=== PATIENT | female | born 1945 | race Caucasian/White ===

== ENCOUNTER 2024-04-19 22:48 | Emergency (ER) | payer MEDICARE, SELFPAY ==
[2024-04-19 22:54] VITALS: BP 200/98
[2024-04-19 23:04] VITALS: BMI 22.9
--- NOTE | 2024-04-19 23:14 | ED.GENMED ---
History of Present Illness
General
Chief Complaint: Abdominal Pain
Source: patient
Time Seen by Provider: 04/19/24 23:06
History of Present Illness
History of Present Illness:
This patient is a 78-year-old female was feeling perfectly well until about 3 hours ago when she developed the somewhat gradual onset of right lower quadrant pain that she also notes in her right lower back. The pain is constant but wax and wanes
in intensity and she feels like she 'cannot get comfortable'. She has nausea but denies vomiting. She did have 1 episode of loose stools without blood. She denies fever, chest pain, dyspnea, upper abdominal pain, diaphoresis, or other complaints
Past History
Past History
ED Past Medical History: Asthma, COPD and HTN
ED Past Surgical History: Cholecystectomy and Gynecological (Hysteretomy)
Social History
Tobacco: Former smoker
Alcohol: None
Drug: None
Personal:
Living: alone
Phy Exam
Physical Exam
Physical Exam:
GENERAL: Alert , in no apparent distress, pleasant, appears slightly uncomfortable
EYE: pupils equal and reactive
NECK: Supple, no significant adenopathy.
ENT: o/p clr, mmm.
CARDIAC: Regular rate and rhythm .
LUNGS: Clear breath sounds bilaterally, no acute respiratory distress, no wheezes/rales/rhonchi
ABDOMEN: Soft, very mild right mid quadrant tenderness, no r/g, no cvat
NEUROLOGICAL: Alert and oriented, no focal neuro deficits
SKIN: Warm and dry, skin intact.
MUSCULOSKELETAL: No edema, well perfused.
PSYCH: Normal and appropriate interaction.
Course
Orders/Labs/Results
Orders:
Orders
04/19/24 23:13
Complete Blood Count/With Diff Urgent
Comprehensive Metabolic Panel Urgent
Urinalysis Reflex To Culture Urgent
Date Specimen was Collected: 04/19/24
Time Specimen was Collected: 23:07
Urine Microscopic Reflex Cult Urgent
Ketorolac [Toradol] 15 mg IV NOW STA
04/19/24 23:14
CT Abd/pel Without Iv Or Oral Urgent
Comment:
Reason For Exam: rlq/back pain
04/19/24 23:18
Ondansetron Injectable [Zofran] 4 mg .ROUTE .STK-MED ONE
04/19/24 23:19
Ondansetron Injectable [Zofran] 4 mg IV NOW STA
04/19/24 23:54
Morphine Sulfate 4 mg .ROUTE .STK-MED ONE
04/19/24 23:55
Morphine Sulfate 4 mg IV NOW STA
04/20/24 00:02
US Pelvis W Transvag Combined Urgent
Reason For Exam: R sided pain
Abnormal Lab Results
04/19/24
23:13
WBC 11.4 H 10^3/uL
(4.8-10.8)
Plt Count 416 H 10^3/uL
(130-400)
Absolute Neuts (auto) 8.5 H 10^3/uL
(1.4-6.5)
Absolute Monos (auto) 1.2 H 10^3/uL
(0.1-0.6)
Lymphocytes % 12.8 L %
(20.5-51.1)
Monocytes % 10.9 H %
(1.7-9.3)
Urine Ketones 1+ A
(Negative)
Ur Occult Blood Reflex Trace A
(Negative)
Urine RBC 7-10 A /HPF
(0-2)
04/19/24 23:13
04/19/24 23:13
Vital Signs
Initial and Last Documented VS:
Initial Vital Signs
Temp Pulse Resp BP Pulse Ox
97.7 F 98 22 200/98 96
04/19/24 22:54 04/19/24 22:54 04/19/24 22:54 04/19/24 22:54 04/19/24 22:54
Last Documented Vital Signs
Temp Pulse Resp BP Pulse Ox
97.7 F 98 22 162/76 95
04/19/24 22:54 04/19/24 22:54 04/19/24 22:54 04/20/24 00:01 04/20/24 00:15
*Critical Care Note
Total Time (30-74mins, 75-104mins- exclusive of procedures): Not Applicable
Update Note
Update Note:
Patient presents to the Emergency Department with ____abdominal pain
Number and Complexity of Problems Addressed at the Encounter
� Chronic conditions affecting care:
� Acute Exacerbation and/or Progression of Chronic Illness:
� Differential Diagnosis includes: But not limited to appendicitis, kidney stone, colitis, etc. etc.
Amount and/or Complexity of Data to be Reviewed and Analyzed
� I performed an independent evaluation of and my interpretation is:
EKG:
CT: 1201 AM vision report verbal: 20 cm cyst arising from pelvis, t hought to be ovarian in origin, has septations. Unlikely to torse given size.
Xrays:
Laboratory Studies:mild leukocytosis
Other:
� Review of other/old records reveals:
� Clinical information was obtained by an independent historian:
� Prescriptions/Medications Considered but not given:
� Further testing considered but not performed:
Risk of Complications and/or Morbidity or Mortality of Patient Management
� Social determinants of health affecting care:
� Discussion with other providers (PCP, Hospitalists, Consultants, etc):
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 Pt's pain better with morphine.
1219 AM case dw US tech, she does not need to fill bladder before going over, recommend tV, d/w pt this approach,she is goign to US area now.
Of note, we did bladder scan before CT report back, read as >1100 ml, Ansari placed however less than 200 Ml...suspect scanner misread cyst as bladder.
101 AM vision verbal report...US shows flow along periphery of mass, unable to see individual ovaries. Torsion thought to be very unlikely.
134 am reassessment...pt remains pain free (has been pain free since one and only dose of morphine). Repeat tt sent to Dr Chaudhry.
Case d/w Dr Chaudhry again, updated regarding pain status, US , review of CT, etc. Collectively, it is thought to be EXTREMELY unlikley that this represents a torsion...(shared by manuelito also)...mass so large that essentially without room to actually
torse. Pain fully relieved. Dr Chaudhry recommends d/c with gynonc promptly. Long long d/w pt and son...aware that this may be malignancy...f/u essential. Short course of pain meds written on script (Doc RX not operational) with precautions.
ED Attending Note
-
Portions of this chart may have been created with voice recognition software.� Occasional wrong word or��sound alike� substitutions may have occurred due to the inherent limitations of voice recognition software.
Discharge Plan
Departure
Patient Disposition: Home (Routine Discharge)
Date of Disposition: 04/20/24
Time of Disposition: 01:02
Patient with high blood pressure during this ER visit?: Yes
Condition: Good
Discharge Problem:
Abdominal pain, Cyst, ovarian
Instructions: Ovarian Cyst (DC), Abdominal Pain, BLOOD PRESSURE
Prescriptions:
New
oxycodone-acetaminophen [Percocet] 5-325 mg tablet
1 tab PO Q4HPRN PRN (Reason: pain) Qty: 13 0RF
No Action
lisinopril 10 MG tablet
10 mg PO DAILY
albuterol sulfate 1 PUFF HFA aerosol inhaler
2 puff inhalation R Q4HPRN PRN (Reason: prn)
latanoprost (PF) 7.5 ML drops
1 drp OP DAILY
Trelegy Ellipta 200-62.5-25 mcg Blister With Device
1 inh INHALATION DAILY
Referrals:
PRIVATE,PHYSICIAN [Family Provider] -
Edil Carrera MD [Active] - Follow up in 2-3 days
Activity Restrictions/Additional Instructions:
IF YOU DEVELOP FEVER, CHILLS, VOMITING, RECURRENT/NEW/PERSISTENT PAIN, BLEEDING, OR OTHER WORRISOME SIGNS, GO TO THE ER IMMEDIATELY! IT IS VERY IMPORTANT THAT YOU SEE THE GYNONCOLOGY DOCTOR SOON POSSIBLE (THIS WEEK). YOU NEED FURTHER
EVALUATION OF WHAT IS THOUGHT TO BE AN OVARIAN CYST.
Interventions
Interventions:
*Risk Screen - Suicide Last Done: 04/19/24 22:54
*General Assessment Last Done: 04/19/24 23:04
*Neglect/Abuse Screening Last Done: 04/19/24 22:54
ED- Fall Risk Assessment Last Done: 04/19/24 23:04
*ED COVID-19 Vaccine History Last Done: 04/19/24 23:04
ME-Tifcnh-Zcnutaqmxb Assessment Last Done: 04/19/24 23:04
Discharge Date and Time
Print Language: DANISH
[2024-04-19] MEDS: ZOFRAN 4 MG IV (23:20)
[2024-04-19] MEDS: TORADOL 15 MG IV (23:20)
[2024-04-19 23:22] LABS: % Basophils 0.6 % (0-2); % Immature Granulocytes 0.4 % (0-0.5); % Lymphocytes 12.8 % (20.5-51.1); % Monocytes 10.9 % (1.7-9.3); % Neutrophils 74.3 % (42.2-75.2); Absolute Basophils 0.1 10^3/uL (0-0.2); Absolute Eosinophils 0.1 10^3/uL (0-0.7); Absolute Lymphocytes 1.5 10^3/uL (1.2-3.4); Absolute Monocytes 1.2 10^3/uL (0.1-0.6); Absolute Neutrophils 8.5 10^3/uL (1.4-6.5); Hematocrit 41.8 % (37.0-47.0); Hemoglobin 14.2 g/dL (12.0-16.0); Mean Corpuscular Hgb 28.5 pg (27.0-31.0); Mean Corpuscular Volume 83.9 fL (81.0-99.0); Mean Platelet Volume 8.7 fL (7.4-10.4); Nucleated Red Blood Cells % 0 %; Platelet Count 416 10^3/uL (130-400); Red Blood Cell Count 4.98 10^6/uL (4.20-5.40); Red Cell Dist. Width 13.8 % (11.5-14.5); White Blood Cell Count 11.4 10^3/uL (4.8-10.8)
[2024-04-19 23:23] LABS: Urine Albumin Negative (Neg - Trace); Urine Bilirubin Negative (Negative); Urine Character Slightly Cloudy (Clear); Urine Color Yellow; Urine Glucose Negative (Negative); Urine Ketone 1+ (Negative); Urine Leukocyte Negative (Negative); Urine Nitrite Negative (Negative); Urine Occult Blood Trace (Negative); Urine Urobilinogen Negative (Neg - 1+)
[2024-04-19 23:34] LABS: Urine Squamous Cell 16-20 /LPF (Few)
[2024-04-19 23:35] LABS: ALT (SGPT) 20 U/L (0-35); AST (SGOT) 28 U/L (14-36); Albumin 4.2 g/dl (3.5-5.0); Alkaline Phosphatase 119 U/L (38-126); Blood Urea Nitrogen 17 mg/dl (7-17); Calcium 9.7 mg/dl (8.4-10.2); Carbon Dioxide 25 mmol/L (22-30); Chloride 103 mmol/L (98-107); Estimated Creatinine Clearance 40 ml/min; Glucose 95 mg/dl (70-99); Potassium 4.4 mmol/L (3.5-5.1); Sodium 139 mmol/L (135-145); Total Bilirubin 0.8 mg/dl (0.2-1.3); Total Protein 6.8 g/dl (6.3-8.2); eGFR > 60.00
[2024-04-19 23:36] LABS: Urine White Cell None Seen /HPF (0-5)
[2024-04-19] MEDS: MORPHINE SULFATE 4 MG IV (23:55)
--- NOTE | 2024-04-20 | EDRN ---
patient was bladder scanned for >1000 when 17F ayers placed only 100mls clear yellow urine drained-- Dr. Ayers made aware and is at bedside
[2024-04-20 00:01] VITALS: BP 162/76
[2024-04-20 01:00] VITALS: BP 167/80
== END 2024-04-20 01:48 | disposition home or self-care (01) ==
LOC: EMR 22:48
PROVIDERS: Student in an Organized Health Care Education/Training Program; EMERGENCY PHYSICIAN Emergency Medicine
DX: R10.31 Right lower quadrant pain (principal); R11.0 Nausea; M54.50 Low back pain, unspecified; N83.209 Unspecified ovarian cyst, unspecified side; I10 Essential (primary) hypertension; J44.89 Other specified chronic obstructive pulmonary disease; Z87.891 Personal history of nicotine dependence; Z90.49 Acquired absence of other specified parts of digestive tract; Z88.1 Allergy status to other antibiotic agents; Z88.0 Allergy status to penicillin
CPT/HCPCS: 99285; 96374; 96375 ×2; 51798; 51702; 74176; 76830; 76856; 80053; 81003; 81015; 85025

== ENCOUNTER 2024-04-20 13:25 | Inpatient (IN) | payer MEDICARE, SELFPAY ==
[2024-04-20] VITALS (15 sets, daily range): BP systolic 117–198; BP diastolic 63–94; BMI 23.0; BMI 22.1
--- NOTE | 2024-04-20 10:48 | ED.GENMED ---
History of Present Illness
General
Chief Complaint: Abdominal Pain
Time Seen by Provider: 04/20/24 10:48
History of Present Illness
History of Present Illness:
TIME OF INITIAL ENCOUNTER: 10:50 AM
HPI: The patient presents with right sided pain. She was seen in the emergency department overnight and was found to have a large ovarian mass. However pain was improved and in discussion with gynecology, she was discharged to home. This morning,
her pharmacy was not open and therefore did not start the Percocet. The pain was rather severe and debilitating so she came in here for reevaluation.
EXAM:
GENERAL: Appears to be in mild to moderate distress
HEENT: Moist oral mucosa
CARDIOVASCULAR: No murmurs, normal heart rate, regular rhythm, No chest wall tenderness
PULMONARY: No respiratory distress, breath sounds are clear and equal
ABDOMEN: Prominent diffuse abdominal tenderness with fullness noted in the lower abdomen
NEUROLOGIC: Good strength all extremities, no coordination deficits
PSYCHIATRIC: Appropriate mental status, normal insight and judgement
EXTREMITIES: Nontender, no edema, moves all extremities equally
SKIN: No rash, no lesions
NUMBER AND COMPLEXITY OF PROBLEMS ADDRESSED AT THE ENCOUNTER
� Chronic conditions affecting care: Former smoker, high blood pressure, has had cholecystectomy
� Acute Exacerbation and/or Progression of Chronic Illness: This is an acute problem
� Differential Diagnosis includes:
AMOUNT AND/OR COMPLEXITY OF DATA TO BE REVIEWED AND ANALYZED
� I performed an independent evaluation of and my interpretation is:
EKG: Sinus 79, normal axis, no acute ST abnormality
CT:
X-rays:
Laboratory Studies: White count 11.9, hemoglobin 13.6, chemistries unremarkable, CEA and CA125 have been added by gynecology which are currently pending
Other:
� Review of other/old records: I reviewed the notes from yesterday. The patient had acute right lower quadrant pain that started yesterday. She was given Toradol in the emergency department and then was given a dose of
morphine. It appears that Dr. Ansari did discuss with Dr. Childs. CT of the abdomen pelvis showed a large 20 cm cystic midline mass 'etiology likely ovarian/neoplasm to be excluded'. Ultrasound showed a 21.5 cm mass with arterial and Doppler flow
noted.
� Clinical information was obtained by an independent historian: I spoke to family at bedside
� Prescriptions/Medications Considered but not given:
� Further testing considered but not performed:
RISK OF COMPLICATIONS AND/OR MORBIDITY OR MORTALITY OF PATIENT MANAGEMENT
� Social determinants of health affecting care: Lives at home
� Discussion with other providers: Discussed case with Dr. Childs
� Escalation of care including admission/observation vs risk of discharge considered: I discussed the case with Dr. Childs who discussed the case with Dr. Toussaint plan is for surgery today due to concern for torsion,
ANY OTHER UPDATES:
12 PM: I reassessed the patient and despite narcotic analgesia she still appears somewhat uncomfortable. Since she is likely going to the OR later, NPO.
Past History
Past History
ED Past Medical History: Asthma, COPD and HTN
ED Past Surgical History: Cholecystectomy and Gynecological (Hysteretomy)
Social History
Tobacco: Former smoker
Alcohol: None
Drug: None
Personal:
Living: alone
Phy Exam
Physical Exam
Physical Exam:
See HPI
Course
Orders/Labs/Results
Orders:
Orders
04/20/24 Lunch
NPO
Allow oral meds: No
Allow clear liquids: No
04/20/24 10:55
Ketorolac [Toradol] 15 mg IV NOW STA
Morphine Sulfate 4 mg IV NOW STA
04/20/24 11:07
Basic Metabolic Panel Urgent
Complete Blood Count/With Diff Urgent
04/20/24 11:11
Ondansetron Injectable [Zofran] 4 mg IV NOW STA
04/20/24 11:51
Admit Patient As Directed
Co-Sign Provider:
Level of Care: Inpatient admission
Assign to:: Medical/Surgical
Physician / Group: [facility]
Diagnosis: Pelvic Mass
Reason for Hospitalization: Pelvic Mass, abdominal pain, suspect torsion
Expected length of stay greater than two midnights?: No
ELOS- Estimated Length of Stay in days: 2
I certify the patient meets the requirements for IP care: Yes
PRN Pain Medication Management As Directed
May give lesser potent ordered pain med per pt: Yes
preference::
Protocol:: Medication orders for pain may be administered in a
manner that supports deferring to patient preference
when the pt is:
- Requesting an ordered lesser potent pain medication.
Least to most potent pain medications are defined
as: acetaminophen < NSAID < tramadol < opioids
(morphine, oxycodone, hydromorphone).
- Requesting a lesser dose of the same medication IF
ORDERED.
- Requesting a less intrusive route of administration
if both routes are prescribed by the provider (PO <
IV).
04/20/24 11:56
Sequential Compression Device [Pneumatic Compression Sleeves] As Directed
Type: Knee high
04/20/24 11:57
DX Deep Vein Thrombosis Video Routine
04/20/24 11:58
EKG [Electrocardiogram (*1)] Urgent
Reason for Study: Abdominal Pain
Other Reason for Exam: Pre-op
04/20/24 12:02
Electrocardiogram (*1) Urgent
Reason for Study: PreOp
EKG- Treatment ONCE
04/20/24 12:10
CA 125 Urgent
CEA Urgent
04/20/24 14:00
Clindamycin 900 mg/50 ml [Cleocin] 900 mg in 50 ml IV PRE PROCEDURE
Gentamicin Sulfate [Gentamicin] 280 mg 0.9% Sodium Chloride [Nss] 50 ml IV ONCE
Abnormal Lab Results
04/20/24
11:07
WBC 11.9 H 10^3/uL
(4.8-10.8)
MCHC 32.9 L g/dL
(33.0-37.0)
Absolute Neuts (auto) 9.6 H 10^3/uL
(1.4-6.5)
Absolute Lymphs (auto) 1.0 L 10^3/uL
(1.2-3.4)
Absolute Monos (auto) 1.1 H 10^3/uL
(0.1-0.6)
Neutrophils % 80.9 H %
(42.2-75.2)
Lymphocytes % 8.2 L %
(20.5-51.1)
Monocytes % 9.6 H %
(1.7-9.3)
BUN 20 H mg/dl
(7-17)
04/20/24 11:07
04/20/24 11:07
Vital Signs
Initial and Last Documented VS:
Initial Vital Signs
Temp Pulse Resp BP Pulse Ox
98.2 F 88 18 198/78 96
04/20/24 09:39 04/20/24 09:39 04/20/24 09:39 04/20/24 09:39 04/20/24 09:39
Last Documented Vital Signs
Temp Pulse Resp BP Pulse Ox
98.2 F 84 20 153/77 94
04/20/24 09:39 04/20/24 11:15 04/20/24 11:15 04/20/24 12:00 04/20/24 12:45
*Critical Care Note
Total Time (30-74mins, 75-104mins- exclusive of procedures): Not Applicable
ED Attending Note
-
Portions of this chart may have been created with voice recognition software.� Occasional wrong word or��sound alike� substitutions may have occurred due to the inherent limitations of voice recognition software.
Discharge Plan
Departure
Patient Disposition: Admit
Date of Disposition: 04/20/24
Time of Disposition: 12:03
Presentation/result/management discussed w/ accepting MD/DO: dr aguayo
Discharge Problem:
Pelvic mass
Prescriptions:
No Action
lisinopril 10 MG tablet
10 mg PO DAILY
albuterol sulfate 1 PUFF HFA aerosol inhaler
2 puff inhalation R Q4HPRN PRN (Reason: sob)
Trelegy Ellipta 200-62.5-25 mcg Blister With Device
1 inh INHALATION R DAILY
latanoprost 0.005 % Drops
1 drp BOTH EYES HS
esomeprazole magnesium [Nexium] 20 mg Capsule,Delayed Release(Dr/Ec)
20 mg PO DAILY
Centrum MultiGummies 80 mcg Tablet,Chewable
1 tab PO DAILY
Referrals:
Preeti Poole DO [Family Provider] -
Interventions
Interventions:
*Risk Screen - Suicide Last Done: 04/20/24 09:39
*General Assessment Last Done: 04/20/24 09:39
*Neglect/Abuse Screening Last Done: 04/20/24 09:39
*ED COVID-19 Vaccine History Last Done: 04/20/24 11:04
HP-Qvqpgl-Frmetrczmm Assessment Last Done: 04/20/24 11:04
Discharge Date and Time
Print Language: LITHUANIAN
[2024-04-20] MEDS: MORPHINE SULFATE 4 MG IV (11:15)
[2024-04-20] MEDS: ZOFRAN 4 MG IV ×2 (11:15→22:11)
[2024-04-20] MEDS: TORADOL 15 MG IV ×2 (11:15→18:07)
[2024-04-20 11:18] LABS: % Basophils 0.6 % (0-2); % Eosinophils 0.4 % (0-6); % Immature Granulocytes 0.3 % (0-0.5); % Lymphocytes 8.2 % (20.5-51.1); % Monocytes 9.6 % (1.7-9.3); % Neutrophils 80.9 % (42.2-75.2); Absolute Basophils 0.1 10^3/uL (0-0.2); Absolute Eosinophils 0.1 10^3/uL (0-0.7); Absolute Monocytes 1.1 10^3/uL (0.1-0.6); Absolute Neutrophils 9.6 10^3/uL (1.4-6.5); Hematocrit 41.4 % (37.0-47.0); Hemoglobin 13.6 g/dL (12.0-16.0); Mean Corp Hgb Conc. 32.9 g/dL (33.0-37.0); Mean Corpuscular Hgb 27.9 pg (27.0-31.0); Mean Corpuscular Volume 84.8 fL (81.0-99.0); Nucleated Red Blood Cells % 0 %; Platelet Count 385 10^3/uL (130-400); Red Blood Cell Count 4.88 10^6/uL (4.20-5.40); Red Cell Dist. Width 13.7 % (11.5-14.5); White Blood Cell Count 11.9 10^3/uL (4.8-10.8)
[2024-04-20 11:30] LABS: Blood Urea Nitrogen 20 mg/dl (7-17); Calcium 9.4 mg/dl (8.4-10.2); Carbon Dioxide 25 mmol/L (22-30); Chloride 102 mmol/L (98-107); Estimated Creatinine Clearance 36 ml/min; Glucose 86 mg/dl (70-99); Potassium 4.7 mmol/L (3.5-5.1); Sodium 140 mmol/L (135-145); eGFR 58.02
--- NOTE | 2024-04-20 13:39 | HP.FOC2 ---
Focused History & Physical
Chief Complaint
HPI:
Chief Complaint: Abdominal Pain, pelvic mass
HPI / Indication for Planned Procedure: 78yo ( x2) who is visiting her sons for the weekend (usually lives in the [facility]) initially presented to the ER last night with c/o sudden onset of lower abdominal pain with associated nausea. At the
time she had a CT scan and Pelvic US performed which showed evidence of a large 20cm in size multiseptated cystic pelvic mass, flow was seen along the periphery but actual ovarian tissue not able to be identified to say rule torsion in or out with
certainty. Pain improved with a dose of morphine and she was d/c home with the plan for outpatient f/u. She states she went home and went to sleep but when she woke up this morning, her pain had returned and was severe again so she returned to the
ER. On further questioning she states since the Summer she has noticed weight gain and increased abdominal girth and bloating. feeling full and slightly short of breath. She has a hiatal hernia so it was felt her GI sx were related to this. She also
has increased urinary frequency but otherwise normal bowel function. She has not seen a CHIEF SECURITY AND SAFETY OFFICER for many years. She has a h/o a hysterectomy in 1976 for 'precancerous changes'. Oophorectomy was not performed at that time.
CT A/P: There is a large mass which appears to originate in the pelvis, and extend into the mid to lower abdomen. Predominantly fluid attenuation/cystic, with a few thin linear internal septations. Etiology likely ovarian; neoplasm to be excluded.
No ascites or adenopathy appreciated.
No CT evidence to suggest peritoneal carcinomatosis.
Pelvic US: large multiseptated midline cystic mass measuring 21.5 x 10.7 x 19 cm. Arterial and venous Doppler flow is noted at the peripheral margin of the mass. Septations are relatively smooth and linear, measuring up to 5 mm. However, no
definitive solid mass or nodularity.
Nonvisualization of the ovaries.
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
No Pelvic Free fluid
Relevant Past Medical History: COPD or Pulmonary Disease, Hypertension and Other (hiatal hernia, Asthma)
Relevant Social History: Negative
Relevant Family History: Negative
Relevant Past Surgical History: Positive for (Cholecystectomy, Hysterectomy 1976)
Review of Systems
Review of Pertinent Systems: All Systems Negative Except for the Following Positives (per HPI)
Medication
See Medication form for detailed medications: Yes
Medication List (including Herbals & OTC):
albuterol sulfate 90 mcg/actuation aerosol inhaler 2 puff inhalation R Q4HPRN PRN sob 01/27/18
lisinopril 10 mg tablet 10 mg PO DAILY 01/27/18
fluticasone fur. 200 mcg-umeclid 62.5 mcg-vilant 25 mcg inhalat.powder (Trelegy Ellipta) 1 inh inhalation R DAILY 04/19/24
esomeprazole magnesium 20 mg capsule,delayed release (Nexium) 20 mg PO DAILY 04/20/24
latanoprost 0.005 % eye drops 1 drp BOTH EYES HS 04/20/24
multivitamin with minerals-folic acid 80 mcg chewable tablet 1 tab PO DAILY 04/20/24
Medications Reviewed: Yes
Allergies and Reactions
Patient has Allergies: Yes
Noted Allergies and Reactions:
Allergy/AdvReac Type Severity Reaction Status Date / Time
azithromycin Allergy Hives Verified 04/20/24 09:39
Penicillins Allergy Hives Verified 04/20/24 09:39
Pertinent Physical Exam
All Other Systems: Negative
Abdomen: Other (firm smooth mass palpable to the umbilicus, wide and encompassing almost the entire width of her lower abdomen. Non mobile, no significant ttp, no r/g)
Extremities: Normal
Other: EKG: NSR
Diagnosis / Assessment
78yo with Abdominal pain and Large Pelvic Mass concern for ovarian torsion
Plan / Procedure
Patient has received toradol, morphine and zofran while in the ER and currently appears comfortable with a non acute abdomen. However, given her recurrent abdominal pain and return to the ER, torsion of this pelvic mass is highest on the ddx.
Surgical intervention is warranted however given its size and mild complexity I did speak with [employer] Specialist Onc who is willing to assist with the procedure. I explained the procedure of an exp Laparotomy, BSO, pelvic washings and possible staging to the
patient and her two sons who are present. Risks of bleeding, infection, injury to surrounding structures, need for additional unplanned procedures were addressed. Consents signed. I explained to them that there is some concern for malignancy though
lower as there is no evidence of lymphadenopathy or carcinomatosis. This may be a benign cystadenoma however we need to wait for final pathology before knowing with certainty. I explained that given the open nature of this procedure she will be
admitted to the hospital post-op for potentially 2 days or more as we need to ensure her pain is controlled and she meets all of her post-op milestones prior to discharge.
CEA, CA 125 pending.
Gent/Clinda ordered for abx ppx
Heparin and SCDs for DVT ppx
NPO/IVF
Nursing Cleat Blanker aware and will let Anesthesia and OR staff know.
Vital Signs / Labs
-
Vital Signs and Labs:
Temp Pulse Resp BP Pulse Ox
98.2 F 84 20 157/78 94
04/20/24 09:39 04/20/24 11:15 04/20/24 11:15 04/20/24 13:00 04/20/24 13:45
04/20/24 11:07
04/20/24 11:07
04/20/24
11:07
WBC 11.9 H
MCHC 32.9 L
Absolute Neuts (auto) 9.6 H
Absolute Lymphs (auto) 1.0 L
Absolute Monos (auto) 1.1 H
Neutrophils % 80.9 H
Lymphocytes % 8.2 L
Monocytes % 9.6 H
BUN 20 H
--- NOTE | 2024-04-20 13:42 | W.CON.GYNONC ---
Consultation
-
Date/Time Consultation Requested: 04/20/2024 1100
Date/Time Consultation Performed: 04/20/2024 1:42
Requesting Provider: Blanche Chaudhry
Performing Provider: Edil Carrera
Reason for Consultation: Pelvic Mass
Chief Complaint
-
abdomnal pain
History of Present Illness
Chief Complaint: Abdominal Pain
Source: patient
Time Seen by Provider: 04/19/24 23:06
History of Present Illness
History of Present Illness:
This patient is a 78-year-old female was feeling perfectly well until about 3 hours ago when she developed the somewhat gradual onset of right lower quadrant pain that she also notes in her right lower back. The pain is constant but wax and wanes
in intensity and she feels like she 'cannot get comfortable'. She has nausea but denies vomiting. She did have 1 episode of loose stools without blood. She denies fever, chest pain, dyspnea, upper abdominal pain, diaphoresis, or other complaints
Past History
Past History
ED Past Medical History: Asthma, COPD and HTN
ED Past Surgical History: Cholecystectomy and Gynecological (Hysteretomy)
Social History
Tobacco: Former smoker
Alcohol: None
Drug: None
Personal:
Living: alone
Medical History
Allergies
Allergies reflect when allergies were last updated in [employer] [facility]
azithromycin Allergy (Verified 04/20/24 09:39)
Hives
Penicillins Allergy (Verified 04/20/24 09:39)
Hives
Physical Exam
Vital Signs / I&O
Vitals
Temp Pulse Resp BP Pulse Ox
98.2 F 84 20 153/77 94
04/20/24 09:39 04/20/24 11:15 04/20/24 11:15 04/20/24 12:00 04/20/24 12:45
Physical Exam
General: Well Developed
HEENT: Normocephalic
Respiratory: Clear and Wheezes
Cardiac: S1/S2 and Regular Rhythm
Breast: Deferred by me
GI: Soft, Non Tender and Non Distended
Genito-urinary: Costovertebral Angle Tend
Musculoskeletal: No Clubbing, No Cyanosis and No Edema
Skin: Warm, Dry and Rash
Neuro: Awake, Alert and Oriented
Results
-
04/20/24 11:07
04/20/24 11:07
Exams: CT Abd/pel Without Iv Or Oral
Technique: CT abdomen and pelvis without intravenous or oral contrast.
INDICATION: Abdominal pain. Back pain. Right lower quadrant pain.
COMPARISON: 01/27/2018.
FINDINGS:
Lung bases:
Mild to moderate emphysematous lung changes. Small to moderate hiatal hernia. No pleural or pericardial effusion.
ABDOMEN:
Liver: Unremarkable unenhanced appearance.
Gallbladder: Absent.
Bile duct: No dilatation.
Pancreas: Mild fatty infiltration most pronounced in the region of the head and neck.
Spleen: Normal in size.
Adrenal glands: Mild adrenal gland thickening. No dominant mass.
Kidneys:
Retroperitoneum: No aneurysm. No adenopathy or mass.
Peritoneum: Large fluid attenuation/cystic midline pelvic mass measuring 20 x 12 x 14 cm with few thin linear internal septations. Etiology likely ovarian; neoplasm to be excluded. No peritoneal nodularity or stranding to suggest carcinomatosis. No
upper abdominal ascites or focal collection. No free air.
Bowel: No evidence of bowel obstruction. Minor sigmoid diverticulosis. No diverticulitis.
Appendix: Normal.
Anterior abdominal wall: No hernia.
Pelvis:
No ascites. No inflammatory soft tissue stranding. No adenopathy appreciated.
Large mass with extrinsic compression and anterior displacement of the urinary bladder. The bladder is empty.
Osseous review:
No suspicious findings.
Discogenic and facet degenerative changes. Mild left scoliosis.
IMPRESSION:
There is a large mass which appears to originate in the pelvis, and extend into the mid to lower abdomen. Predominantly fluid attenuation/cystic, with a few thin linear internal septations. Etiology likely ovarian; neoplasm to be excluded. Further
evaluation may be considered with follow-up ultrasound and/or MRI.
No ascites or adenopathy appreciated.
No CT evidence to suggest peritoneal carcinomatosis.
Mild to moderate emphysematous lung changes. Small to moderate hiatal hernia.
The examination was performed after-hours on an emergency basis, with initial preliminary interpretation provided by [facility].
Electronically signed by Freddie Ga MD, 04/20/2024 7:05 AM
Data Reviewed
-
Diagnostic Radiology: Image personally visualized and interpreted
CT Scan: Image personally visualized and interpreted
Ultrasound: Image personally visualized and interpreted
Impression / Plan
-
78 yo wf with 20 cm pelvic mass and has pain.
appearance on US is benign with no significant excressence or vascularity.
I suspect torsion based on clinical presentation.
I recommend surgery, exp lap, BSO, (resection of mass) and washings, possible omental /peritoneal biopsies.
Labs reviewed, CA 125 and CEA added , but will not change my plan.
discussed with Dr Chaudhry. Or notified.
[2024-04-20] MEDS: HEPARIN 5000 UNITS SC (14:27)
--- NOTE | 2024-04-20 14:29 | W.SUR.PREOP ---
Pre-Operative Surgical Note
-
I have examined this patient prior to the performance of the scheduled procedure.
The patient's condition is unchanged from the time of the current History and
Physical and the patient is able to undergo the scheduled procedure.
--- NOTE | 2024-04-20 14:52 | PTCARENOTE ---
Received patient from ER via stretcher around 1405 in stable condition. Shortly after arriving to floor, OR called for patient to be brought to them. Report given to JASWANT Stevens. Rn made aware of antibiotics to be given and also that patients BP was
elevated 190/84 and that it was not reported to the physician yet. Hilda stated she would follow up with it. CHG wipes done as well as nasal swabs. Patient sent to the OR around 1435 via bed.
--- NOTE | 2024-04-20 15:56 | OR.RPT ---
Operative Report
Operative Report
Date of procedure: April 20, 2024
Preoperative diagnosis: 20 cm pelvic mass, abdominal pain
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
Anesthesia: General Endotracheal intubation
Surgeon:Edil Carrera
Manager Entry/Co Surgeon: Blanche Chaudhry
Procedure: Exploratory laparotomy, bilateral salpingo-oophorectomy, omentectomy, pelvic washings, appendectomy
Estimated blood loss: 50 cc
Complication: None
Procedure in detail: This patient was brought to the operating room and placed in supine position, general anesthesia was administered she was intubated without any difficulty she was placed in lithotomy position using yellowfin stirrups and prepped
and the abdomen perineum and vagina Ansari catheter was inserted under sterile condition in the bladder. She was draped. Timeout procedure was carried out she had received gentamicin and clindamycin for prophylaxis due to penicillin allergy.
Midline vertical skin incision between umbilicus and symphysis pubis was used to gain entry into the peritoneal cavity upon entry there was no ascites, upper abdomen including right and left diaphragm right and left paracolic gutters liver stomach
spleen all palpated very smoothly. There was a simple appearing 20 cm cyst arising from the right ovary this was partially exteriorized. Adhesions of it to the right pelvic sidewall and right pelvic peritoneum was taken down. Its attachment to
the round ligament was sealed and divided, IP ligament was isolated and the course of the ureter was clearly seen. IP ligament was sealed 3 times with voyant device and divided the specimen was handed over his right tube and ovary to pathology. I
collected pelvic washings from the posterior cul-de-sac. Next omental adhesions to the left lower quadrant were taken down sharply, partial omentectomy was performed in the event the final pathology indicates presence of borderline tumor and
invasive cancer. A series of omental vessels were sealed and divided and omentum was removed and submitted to pathology distal portion of the omentum was from the infracolic portion of the omentum. Next left tube and ovary had attachments to the
round ligament which was sealed and divided, the retroperitoneum was opened and the course of IP ligament was isolated. IP ligament was sealed and divided 3 times the remainder of the attachments of the ovary which was atrophic and appropriate for
age was removed from the pelvis and submitted to pathology. I examined the appendix and the tip had a 1 cm discoloration. Exact etiology is unclear. Mesoappendix was divided into 3 pedicles which were sealed and divided DENYS 60 stapler was fired
across the base of the cecum to complete an appendectomy, this was performed because in many instances mucinous tumors arise from the appendix. The remainder of the bowel was examined from ligament of Treitz down to ileocecal valve which was normal
ascending transverse and descending colon was removed out of the abdomen and examined and there was no evidence of any abnormalities sigmoid colon and rectosigmoid were normal. The peritoneal surfaces in the pelvis including posterior cul-de-sac
and bladder were smooth and the uterus was absent.
We prepared for closure. The pelvis was irrigated and the fluid was removed. The fascia was closed with 0 looped PDS starting from both ends coming to the center and they were tied to each other. Subcutaneous tissue was reapproximated with 3-0
Monocryl suture. Marcelino were used to reapproximate the skin edges. At the completion of the procedure the counts were correct x 2. There was no evidence of residual disease. Patient tolerated procedure well she returned back to recovery room
stable awake and extubated condition counts of laps instruments and needle was correct x 2. I was present and scrubbed for entire procedure as dictated above.
[2024-04-20] MEDS: DILAUDID 0.25 MG IV ×2 (16:14→16:28)
--- NOTE | 2024-04-20 16:16 | SUR.PHASEI ---
Rec'd moaning and shivering, oriented x 3 by RN warm blankets given luis well awaiting anesthesia orders, scrap abraded area noted on L side of upper lip, R fa with tegaderm dsg from OR, ayers to bsd with scant light yellow urine reassured
--- NOTE | 2024-04-20 16:32 | SUR.PHASEI ---
Lip care given luis well, reassured, Dilaudid repeated luis well
--- NOTE | 2024-04-20 16:51 | SUR.PHASEI ---
Lighlty dozing, O2 2l n/c applied for SAO2 92% luis well
--- NOTE | 2024-04-20 17:47 | PTCARENOTE ---
Received patient from PACU via bed around 1700 in stable condition. Patient drowsy but arousable. Vs stable. Midline abdominal incision dressing with small amount of bloody drainage. Catheter in place with leg strap draining clear yellow urine.
Bruise to right cheek and small tear on lip observed. Right forearm 4 x4 intact. Call mathews in reach.
[2024-04-20] MEDS: NORMOSOL-R/PLASMALYTE-A 1000 IV (18:02)
[2024-04-20] MEDS: LOVENOX 40 MG SC (18:07)
[2024-04-20] MEDS: ROXICODONE 2.5 MG PO (21:04)
[2024-04-20] MEDS: COLACE 100 MG PO (21:05)
[2024-04-20] MEDS: ProAIR HFA INHALER 2 PUFF INH (21:27)
[2024-04-20] MEDS: DILAUDID 0.5 MG IV (22:04)
[2024-04-20] MEDS: TYLENOL 650 MG PO (22:04)
[2024-04-21] MEDS: TYLENOL PO (03:21)
[2024-04-21 03:23] VITALS: BP 121/55
[2024-04-21] MEDS: NSS 500 IV (04:01)
[2024-04-21] MEDS: TORADOL 15 MG IV ×3 (06:04→12:05)
[2024-04-21] MEDS: TYLENOL 650 MG PO ×4 (06:04→22:05)
[2024-04-21 07:05] VITALS: BP 139/72
--- NOTE | 2024-04-21 08:01 | W.PN.GYNONC ---
Today's Communication
-
DC IV
advance diet
OOB/chair and some ambulation
Impression / Plan
-
78 yo wf with 20 cm pelvic mass now s/p resection
pathology pending
advance to regular diet
DC IV fluids
ambulate/PT eval
incentive spirometer
Subjective / Interval History
-
POD1 s/p BSO, Oment, Appy
she is appreciative of quick response and intervention
has incisional pain
has not had anything to eat or drink yet
Physical Exam
Vital Signs / I&O
Vitals
Temp Pulse Resp BP Pulse Ox
98.5 F 85 17 121/55 98
04/21/24 03:23 04/21/24 03:23 04/21/24 03:23 04/21/24 03:23 04/21/24 03:23
I&O
04/19/24 04/20/24 04/21/24 04/22/24
07:59 06:59 06:59 06:59
Intake Total 1600 / 1600
Output Total 765 / 765
Balance 835 / 835
Physical Exam
General: No Apparent Distress
HEENT: Normocephalic
Respiratory: Clear and Non Labored Respirations
Cardiac: S1/S2 and Regular Rhythm
GI: Soft, Non Tender and Other (incision is dry with dressing)
Skin: Warm
Neuro: AO x 3
Psych: Calm and Intact Judgement
[2024-04-21] MEDS: NON-FORMULARY ITEM 1 UNIT INH (08:03)
[2024-04-21] MEDS: COLACE 100 MG PO ×2 (08:18→19:30)
[2024-04-21] MEDS: PROTONIX 40 MG PO (08:18)
[2024-04-21] MEDS: ZESTRIL 10 MG PO (08:18)
--- NOTE | 2024-04-21 08:18 | W.PN.OBG.DWH ---
Today's Communication / Plan
-
-continue pain control as ordered
-await spontaneous void
-encourage OOB as tolerated
-regular diet as tolerated.
-d/c IVF
-Lovenox daily for DVT ppx
Assessment/Plan
-
78yo POD#1 s/p Exp Lap, BSO, Omentectomy and Appendectomy
1. Post-op
-continue pain control as ordered
- Ansari removed this AM, await spontaneous void
-encourage OOB as tolerated
-regular diet as tolerated.
-d/c IVF
-Lovenox daily for DVT ppx
-Pathology pending.
2. Hiatal Hernia
-continue protronix
3. CHTN
-continue lisinopril
Subjective Data
-
patient had a lot of abdominal discomfort overnight, pain medication has been helpful. she does have some reflux symptoms. Ansari catheter removed this AM. NO OOB or void yet. +flatus this AM
Objective Data
-
Vital Signs
Temp Pulse Resp BP Pulse Ox
98.5 F 85 16 121/55 97
04/21/24 03:23 04/21/24 03:23 04/21/24 08:06 04/21/24 03:23 04/21/24 08:06
Gen: nad [id number]
Abd: soft, nd, +ttp.
Incision: Bandage in place, shadowing noted, nurse demarcated border and shadowing has not extended beyond the border.
Ext: no LE ttp. SCDs in place
[2024-04-21] MEDS: ROXICODONE 2.5 MG PO (08:26)
[2024-04-21 09:36] LABS: Hematocrit 35.9 % (37.0-47.0); Hemoglobin 11.8 g/dL (12.0-16.0); Mean Corp Hgb Conc. 32.9 g/dL (33.0-37.0); Mean Corpuscular Hgb 28.9 pg (27.0-31.0); Mean Corpuscular Volume 87.8 fL (81.0-99.0); Mean Platelet Volume 9.5 fL (7.4-10.4); Platelet Count 323 10^3/uL (130-400); Red Blood Cell Count 4.09 10^6/uL (4.20-5.40); Red Cell Dist. Width 13.8 % (11.5-14.5); White Blood Cell Count 13.5 10^3/uL (4.8-10.8)
[2024-04-21 10:16] LABS: Blood Urea Nitrogen 28 mg/dl (7-17); Carbon Dioxide 23 mmol/L (22-30); Chloride 101 mmol/L (98-107); Estimated Creatinine Clearance 32 ml/min; Potassium 4.7 mmol/L (3.5-5.1); Sodium 136 mmol/L (135-145)
--- NOTE | 2024-04-21 11:34 | CM ---
Met with pt and her son at bedside
Pt reports she lives alone at listed address; 1 step to enter, 15 steps to 2nd fl. She was visiting her sons in the area and came to [facility]
Independent, active, driving
DME - none
SNF/HH - no past hx
Has ride home at discharge
PCP - Etta Rivera MARBLE COPER ([facility])
Pharm - [facility]
Per pt/son - plan is for pt to initially go home to son's home before returning to her own home
Plan - anticipate home no needs vs w/VN
[2024-04-21 11:40] VITALS: BP 141/78
[2024-04-21 13:05] LABS: CEA 3.45 ng/ml
[2024-04-21 15:25] VITALS: BP 174/86; PULSE 102
[2024-04-21 16:00] VITALS: BP 147/73
[2024-04-21] MEDS: LOVENOX 40 MG SC (17:22)
[2024-04-21] MEDS: MOTRIN 600 MG PO ×2 (17:23→23:17)
[2024-04-21 18:45] LABS: CA 125 79.1 U/mL (0-35)
[2024-04-21 23:00] VITALS: BP 119/61
[2024-04-22] MEDS: ROXICODONE 5 MG PO (05:07)
[2024-04-22] MEDS: MOTRIN PO (05:25)
--- NOTE | 2024-04-22 05:47 | W.PN.GYNONC ---
Today's Communication
-
OOB/ambulate
Impression / Plan
-
78 yo wf with 20 cm pelvic mass now s/p resection
pathology pending
keep on regular diet
encourage ambulation, OOB 2-3 times per day
incentive spirometer
repeat cbc, bmp today, monitor Cr level
Subjective / Interval History
-
POD2 BSO, Oment/Appy
feels better, still with incisional pain
ambulate with PT yesterday
Physical Exam
Vital Signs / I&O
Vitals
Temp Pulse Resp BP Pulse Ox
97.9 F 95 22 119/61 94
04/21/24 23:00 04/21/24 23:00 04/21/24 23:00 04/21/24 23:00 04/21/24 23:00
I&O
04/19/24 04/20/24 04/21/24 04/22/24
07:59 06:59 06:59 06:59
Intake Total 1600 / 1600 480 / 480
Output Total 765 / 765
Balance 835 / 835 480 / 480
Physical Exam
General: No Apparent Distress and Comfortable
Respiratory: Clear and Non Labored Respirations
Cardiac: S1/S2 and Regular Rhythm
GI: Soft, Non Tender and Non Distended
Neuro: AO x 3 and No Motor Deficits
Psych: Intact Judgement
Data Reviewed
-
Lab Data: Labs Reviewed
[2024-04-22] MEDS: NON-FORMULARY ITEM 1 UNIT INH (07:30)
--- NOTE | 2024-04-22 07:39 | W.PN.OBG.DWH ---
Today's Communication / Plan
-
-continue pain control as ordered
-encourage OOB as tolerated
-regular diet as tolerated.
-Lovenox daily for DVT ppx
-Heating pad for back pain
-patient does not feel ready for dc today, still having a lot of incisional pain, plan for dc home tomorrow
-Bandage removed, she may shower
Assessment/Plan
-
78yo POD#2 s/p Exp Lap, BSO, Omentectomy and Appendectomy
1. Post-op
-continue pain control as ordered
- voiding spontaneously, and return of bowel function
-encourage OOB as tolerated
-regular diet as tolerated.
-Lovenox daily for DVT ppx
-Pathology pending. CA 125 was elevated
-Heating pad for back pain
-patient does not feel ready for dc today, still having a lot of incisional pain, plan for dc home tomorrow
-Bandage removed, she may shower
2. Hiatal Hernia
-continue protronix
3. CHTN
-continue lisinopril
Labs ordered and pending this AM
Subjective Data
-
feels okay, was having a lot of back pain overnight, got a hot towel from the nurse which helped. Tolerating PO intake +void, +flatus. Still having a lot of incisional pain. Medication helps. Did ambulate yesterday
Objective Data
-
Vital Signs
Temp Pulse Resp BP Pulse Ox
97.9 F 95 22 119/61 94
04/21/24 23:00 04/21/24 23:00 04/21/24 23:00 04/21/24 23:00 04/21/24 23:00
Gen: nad
Abd: soft, +ttp, nd
Incision: Bandage removed, no further expansion of shadowing beyond previously demarcated line. Incision is c/d/i brianne in place
CA 125: 79.1, CEA 3.4
--- NOTE | 2024-04-22 08:13 | PN.CDI ---
CDI
- -
CDI:
Physician Documentation Request
Admit Date: 04/20/24 13:25
Dear Doctor Amadeo,
Please review the following and provide your response in the progress notes.
Clinical Indicators:
Date of procedure: April 20, 2024
Preoperative diagnosis: 20 cm pelvic mass, abdominal pain
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
Procedure: Exploratory laparotomy, bilateral salpingo-oophorectomy, omentectomy, pelvic washings, appendectomy
Estimated blood loss: 50 cc
Laboratory Tests
04/20/24 04/21/24
08:43
Hgb 13.6 11.8 L
Based on the above and your clinical assessment, please clarify the diagnosis/condition evaluated, monitored and/or treated?
Acute blood loss anemia
Abnormal lab value, clinically insignificant
Anemia of chronic disease - indicate if neoplastic disease, CKD or other
Other(please specify)
Use of terms such as suspected, likely, concern for, or probable (associated with a specific diagnosis that is being evaluated, monitored, or treated as if it exists) are acceptable and can be coded in the inpatient setting, when documented at the
time of discharge.
Thank you,
Sona Briggs RN BSN CCDS
CDI Specialist
please contact via tiger text
Please use your independent medical judgment in providing your response.
[2024-04-22] MEDS: COLACE 100 MG PO ×2 (08:16→21:00)
[2024-04-22] MEDS: ZESTRIL 10 MG PO (08:16)
[2024-04-22] MEDS: PROTONIX 40 MG PO (08:16)
[2024-04-22] MEDS: TYLENOL 650 MG PO ×4 (08:16→21:33)
[2024-04-22 08:17] VITALS: BP 152/78
[2024-04-22] MEDS: ProAIR HFA INHALER 2 PUFF INH (08:39)
[2024-04-22 08:42] LABS: % Basophils 0.6 % (0-2); % Eosinophils 2.5 % (0-6); % Immature Granulocytes 0.3 % (0-0.5); % Lymphocytes 10.2 % (20.5-51.1); % Monocytes 12.1 % (1.7-9.3); % Neutrophils 74.3 % (42.2-75.2); Absolute Basophils 0.1 10^3/uL (0-0.2); Absolute Eosinophils 0.3 10^3/uL (0-0.7); Absolute Monocytes 1.2 10^3/uL (0.1-0.6); Absolute Neutrophils 7.3 10^3/uL (1.4-6.5); Hematocrit 34.9 % (37.0-47.0); Hemoglobin 11.4 g/dL (12.0-16.0); Mean Corp Hgb Conc. 32.7 g/dL (33.0-37.0); Mean Corpuscular Hgb 27.8 pg (27.0-31.0); Mean Corpuscular Volume 85.1 fL (81.0-99.0); Mean Platelet Volume 9.4 fL (7.4-10.4); Nucleated Red Blood Cells % 0 %; Platelet Count 308 10^3/uL (130-400); Red Cell Dist. Width 13.8 % (11.5-14.5); White Blood Cell Count 9.9 10^3/uL (4.8-10.8)
[2024-04-22 09:04] LABS: Blood Urea Nitrogen 22 mg/dl (7-17); Calcium 8.5 mg/dl (8.4-10.2); Carbon Dioxide 24 mmol/L (22-30); Chloride 105 mmol/L (98-107); Estimated Creatinine Clearance 32 ml/min; Glucose 78 mg/dl (70-99); Potassium 4.2 mmol/L (3.5-5.1); Sodium 140 mmol/L (135-145); eGFR 51.75
[2024-04-22] MEDS: MOTRIN 600 MG PO ×3 (12:31→23:03)
[2024-04-22 15:00] VITALS: BP 129/75
--- NOTE | 2024-04-22 16:48 | W.PN.UPDATE ---
Update Note
Progress Note Update
Slight change in hemoglobin noted pre to post-op. 13 to 11. Now stable 11.8 to 11.2 today. This is a clinically insignificant change. Patient without active bleeding and no symptoms of anemia. No additional evaluation or intervention is needed for
this.
[2024-04-22] MEDS: LOVENOX 40 MG SC (17:52)
[2024-04-22 23:09] VITALS: BP 156/75
[2024-04-23] MEDS: MOTRIN 600 MG PO (05:19)
[2024-04-23 07:10] VITALS: BP 186/79
[2024-04-23] MEDS: NON-FORMULARY ITEM 1 UNIT INH (07:13)
[2024-04-23] MEDS: ProAIR HFA INHALER 2 PUFF INH (07:13)
--- NOTE | 2024-04-23 07:40 | W.PN.OBG.DWH ---
Addendum entered and electronically signed by Blanche Childs MD 04/23/24 08:24:
25 minutes spent in encounter with the patient and discharge planning.
Original Note:
Today's Communication / Plan
-
Stable for dc home.
Assessment/Plan
-
78yo POD#3 s/p Exp Lap, BSO, Omental biopsy and Appendectomy
Post-op
-patients pain is much improved. she has met all post-op milestones and is stable for dc home today. We reviewed d/c instructions and outpatient f/u with myself and Dr. Carrera. Script for oxycodone and ibuprofen sent to pharmacy
-regular diet as tolerated.
-Pathology pending. CA 125 was elevated
-Cr slightly elevated from baseline but stable
Subjective Data
-
Patient feeling a lot better this morning. Pain is better controlled. She was told by nursing she could not take a shower yesterday. She continues to have flatus and voiding normally. Tolerating PO intake. No n/v/f/c. +ambulation. Ready to go home.
Objective Data
-
Laboratory Results
04/22/24 07:50
04/22/24 07:50
Vital Signs
Temp Pulse Resp BP Pulse Ox
97.7 F 87 18 156/75 99
04/22/24 23:09 04/23/24 07:20 04/23/24 07:20 04/22/24 23:09 04/23/24 07:20
Gen: nad sitting in chair
Abd: soft, +mod ttp especially on the right of the incision. nd
Incision: brianne intact slight bruising noted around the incision. no significant erythema, no drainage
[2024-04-23] MEDS: TYLENOL 650 MG PO (07:59)
[2024-04-23] MEDS: COLACE 100 MG PO (08:01)
[2024-04-23] MEDS: PROTONIX 40 MG PO (08:01)
[2024-04-23] MEDS: ZESTRIL 10 MG PO (08:02)
[2024-04-23 09:58] VITALS: BP 162/80
--- NOTE | 2024-04-23 10:45 | CM ---
Pt for discharge today
Plans to stay with her son locally at this time
Son to transport home
Discussed IMM
Plan - home no needs
== END 2024-04-23 12:32 | disposition home or self-care (01) | DRG 743 ==
LOC: 2 SOUTH 13:25
PROVIDERS: ADMITTING PHYSICIAN Obstetrics & Gynecology; EMERGENCY PHYSICIAN Emergency Medicine; FAMILY PHYSICIAN Family Medicine; OTHER PHYSICIAN Obstetrics & Gynecology Gynecologic Oncology
PROC: 0DTJ0ZZ Resection of Appendix, Open Approach (ICD-10-PCS; 2024-04-20)
PROC: 0UT20ZZ Resection of Bilateral Ovaries, Open Approach (ICD-10-PCS; 2024-04-20)
PROC: 0DBU0ZZ Excision of Omentum, Open Approach (ICD-10-PCS; 2024-04-20)
PROC: 0UT70ZZ Resection of Bilateral Fallopian Tubes, Open Approach (ICD-10-PCS; 2024-04-20)
DX: D27.9 Benign neoplasm of unspecified ovary (principal); R19.00 Intra-abdominal and pelvic swelling, mass and lump, unspecified site; Z87.891 Personal history of nicotine dependence; J44.89 Other specified chronic obstructive pulmonary disease
CPT/HCPCS: 88304; 88307; 51702; 51798; 74176; 76830; 76856; 80048; 80051; 80053; 81003; 81015; 82378; 82565; 84520; 85025; 85027; 86304; 88112; 88341; 88342; 88360; 93005; 94640; 96374; 96375; 97116; 97163; 99285; C1776